=== PATIENT | female | born 1980 | race African-American/Black ===

== ENCOUNTER 2016-05-08 01:33 | Emergency (ER) | payer OTHER ==
--- NOTE | 2016-05-08 06:22 | DIAGNOSTIC IMAGING REPORT ---
PROCEDURE: XR CHEST 1 VIEW INDICATION: CHEST PAIN TECHNIQUE: Portable AP view (0230 hours). COMPARISON: None. FINDINGS: Lungs are clear. Heart and mediastinum are normal. Thorax is normal. IMPRESSION: 1. Negative chest.
--- NOTE | 2016-05-08 06:33 | DIAGNOSTIC IMAGING REPORT ---
PROCEDURE: CT ABD/PELVIS WITH CONTRAST INDICATION: Epigastric pain. TECHNIQUE: 125 ml of Isovue 300 were injected intravenously and axial images were obtained of the entire abdomen and pelvis with sagittal and coronal reformations. Preliminary report provided by Senia Estes MD ([facility]). COMPARISON: None. FINDINGS: ABDOMEN: Therefore large calcified gallstones (largest 1.8 cm) in a contracted gallbladder. There is moderate fluid distention of the stomach. Bowel pattern is otherwise normal. Liver, spleen, pancreas, kidneys, and aorta are normal. PELVIS: There is a 2.8 cm partially collapsed left ovarian cyst associated small amount of free fluid.. Uterus and right adnexal structures are normal. IMPRESSION: 1. Multiple large gallstones in the partially contracted gallbladder (suggests acute versus chronic cholecystitis). 2. Moderate fluid distention of the stomach. 3. There is a 2.8 cm partially collapsed left ovarian cyst with small amount of free fluid (may represent an incidental finding). All CT scans at this facility use dose modulation, iterative reconstruction, and/or weight-based dosing when appropriate to reduce radiation dose to as low as reasonably achievable.
--- NOTE | 2016-05-08 07:45 | DIAGNOSTIC IMAGING REPORT ---
PROCEDURE: US ABDOMEN ULTRASOUND-LIMITED INDICATION: Right abdominal pain. TECHNIQUE: Haddad scale and color Doppler sonographic images of the abdomen were obtained. COMPARISON: Compared to CT abdomen and pelvis earlier today (05/08/2016). FINDINGS: There are multiple large shadowing gallstones. There is moderate gallbladder wall thickening (4 mm). Common duct is normal (3 mm). Portions of the liver, pancreas, and right kidney are seen, and are normal. IMPRESSION: 1. Cholelithiasis with multiple large shadowing gallstones. 2. Moderate gallbladder wall thickening. Consider cholecystitis (acute versus chronic). 3. Findings discussed with Dr. Aquilino Lopez.
--- NOTE | 2016-05-08 08:04 | ED ORDER SUMMARY ---
..... Patient: MARK MORALES OrderSheet [facility] VisitID: [id number] [place] [address] 36y, F Registration Date/Time: 05/08/2016 ORDER SHEET Weight: 95.2 kg (stated) Allergies: No Known Drug Allergy GENERAL ORDERS: CMP Urgent (02:14 05/08/2016 JRomanelli R.N. verbal order read back to Alice Wilkerson) (2:15 JRomanelli R.N.) CBC w Diff Urgent (02:14 05/08/2016 JRomanelli R.N. verbal order read back to Alice Wilkerson) (2:15 JRomanelli R.N.) NPO (02:14 05/08/2016 JRomanelli R.N. verbal order read back to Alice Wilkerson) (Ack 2:18 IJurca ER Tech1) (2:20 JRomanelli R.N.) UA-Culture if indicated Urgent (02:15 05/08/2016 JRomanelli R.N. verbal order read back to Alice Wilkerson) (Ack 2:18 IJurca ER Tech1) (2:31 JRomanelli R.N.) Urine Urgent (02:16 05/08/2016 JRomanelli R.N. verbal order read back to Alice Wilkerson) (Ack 2:18 IJurca ER Tech1) (2:31 JRomanelli R.N.) Chest 1V Urgent (02:28 05/08/2016 Alice Wilkerson) (Ack 2:30 IJurca ER Tech1) (2:35 RFay) Amylase Urgent (02:29 05/08/2016 DMravindra Wilkerson) (Ack 2:30 IJurca ER Tech1) (2:31 JRomanelli R.N.) Lipase Urgent (02:29 05/08/2016 DMravindra Wilkerson) (Ack 2:30 IJurca ER Tech1) (2:31 JRomanelli R.N.) CT Abd/Pel w Cont (Yes) (01/19) Urgent (03:53 05/08/2016 Alice Wilkerson) (Ack 4:04 IJurca ER Tech1) (4:08 RFay) US Abdomen Limited (Yes) Urgent (05:04 05/08/2016 Alice Wilkerson) (Ack 5:07 IJurca ER Tech1) (6:42 IJurca ER Tech1) MEDICATION ORDERS: GI Cocktail RED PO 35 mL with Lidocaine Viscous Mouth/Throat 10 mL, Diphenhydramine Oral 10 mL, Maalox Plus Oral 15 mL (NOW) (02:29 05/08/2016 Alice Wilkerson) (2:44 Thao R.N.) IV FLUIDS: IV Saline Lock (02:14 05/08/2016 Thao R.NDonn verbal order read back to Alice Wilkerson) (2:15 Thao R.N.) IV NS : initial bolus none -, then none - for X1 (NOW) (02:28 05/08/2016 Alice Wilkerson) (2:32 Thao R.N.) ORDER SHEET NOTES: [Electronically signed by Aquilino Lopez Dr. (08:14 05/08/2016)] [Electronically signed by Esmer Batista R.N. (08:32 05/08/2016)] [Electronically locked/signed by Esmer Batista R.N. (08:32 05/08/2016)]
--- NOTE | 2016-05-08 08:04 | ED ORDER SUMMARY ---
..... Patient: MARK MORALES OrderSheet [facility] VisitID: [id number] [place] [address] 36y, F Registration Date/Time: 05/08/2016 ORDER SHEET Weight: 95.2 kg (stated) Allergies: No Known Drug Allergy GENERAL ORDERS: CMP Urgent (02:14 05/08/2016 JRomanelli R.N. verbal order read back to Alice Wilkerson) (2:15 JRomanelli R.N.) CBC w Diff Urgent (02:14 05/08/2016 JRomanelli R.N. verbal order read back to Alice Wilkerson) (2:15 JRomanelli R.N.) NPO (02:14 05/08/2016 JRomanelli R.N. verbal order read back to Alice Wilkerson) (Ack 2:18 IJurca ER Tech1) (2:20 JRomanelli R.N.) UA-Culture if indicated Urgent (02:15 05/08/2016 JRomanelli R.N. verbal order read back to Alice Wilkerson) (Ack 2:18 IJurca ER Tech1) (2:31 JRomanelli R.N.) Urine Urgent (02:16 05/08/2016 JRomanelli R.N. verbal order read back to Alice Wilkerson) (Ack 2:18 IJurca ER Tech1) (2:31 JRomanelli R.N.) Chest 1V Urgent (02:28 05/08/2016 Alice Wilkerson) (Ack 2:30 IJurca ER Tech1) (2:35 RFay) Amylase Urgent (02:29 05/08/2016 DMravindra Wilkerson) (Ack 2:30 IJurca ER Tech1) (2:31 JRomanelli R.N.) Lipase Urgent (02:29 05/08/2016 DMravindra Wilkerson) (Ack 2:30 IJurca ER Tech1) (2:31 JRomanelli R.N.) CT Abd/Pel w Cont (Yes) (01/19) Urgent (03:53 05/08/2016 Alice Wilkerson) (Ack 4:04 IJurca ER Tech1) (4:08 RFay) US Abdomen Limited (Yes) Urgent (05:04 05/08/2016 Alice Wilkerson) (Ack 5:07 IJurca ER Tech1) (6:42 IJurca ER Tech1) MEDICATION ORDERS: GI Cocktail RED PO 35 mL with Lidocaine Viscous Mouth/Throat 10 mL, Diphenhydramine Oral 10 mL, Maalox Plus Oral 15 mL (NOW) (02:29 05/08/2016 Alice Wilkerson) (2:44 Thao R.N.) IV FLUIDS: IV Saline Lock (02:14 05/08/2016 Thao R.NDonn verbal order read back to Alice Wilkerson) (2:15 Thao R.N.) IV NS : initial bolus none -, then none - for X1 (NOW) (02:28 05/08/2016 Alice Wilkerson) (2:32 Thao R.N.) ORDER SHEET NOTES: [Electronically signed by Aquilino Lopez Dr. (08:14 05/08/2016)] [Electronically signed by Esmer Batista R.N. (08:32 05/08/2016)] [Electronically locked/signed by Esmer Batista R.N. (08:32 05/08/2016)]
--- NOTE | 2016-05-08 08:04 | ED NURSING NOTES ---
Clinical Report - Nurses [facility] [address] [place] [address] 05/08/2016 1:41 [id number] Triage time 01:40 May 08 2016. Acuity: LEVEL 3. Chief Complaint: ABDOMINAL PAIN, NAUSEA and VOMITING. Alert. FAHAD COMA SCORE: Fahad Coma Scale: 15- eyes open spontaneously (4); best verbal response- oriented x 4 (5); best motor response- obeys commands (6). --01:55 Henri Mayfield R.N. 01:43 05/08/16. BP: 127/72. HR: 85. RR: 20. O2 saturation: 100% on room air. Temp: 97.8 F. Pain level now: 11/28. --01:55 Henri Mayfield R.N. Weight: 95.2 kg stated. Height/Length: 62 inches. BMI: 38.4. --01:54 Henri Mayfield R.N. Medications MetFORMIN HCl Oral 500 mg, 2x a day. --01:51 Henri Mayfield R.N. Medication/allergy information source: the patient. --01:55 Henri Mayfield R.N. Allergies No Known Drug Allergy. --01:51 Henri Mayfield R.N. History Arrived by EMS. Historian: patient. Unaccompanied. Primary physician (justice). ( Abdominal Pain LUQ associated with N/V. Pt states that she felt as though her blood sugar was too low (DM) and she didn't have her usual OJ handy, so she made herself a peanut butter and jelly sandwich and 5 minutes after eating it, she became SOB and developed Abdominal Pain.). This started just prior to arrival. She has had nausea, vomiting and abdominal pain. Last oral intake by patient was (about 4 hours ago). Treatment IMAGING MANAGER: None. PAST MEDICAL HX: Immunizations: status is unknown. SOCIAL HX: Former smoker, end date 2013. No alcohol use or drug use. No recent travel. No infectious disease exposure. ABUSE ASSESSMENT: No report of abuse. FALL RISK ASSESSMENT: Fall risk assessment completed. No fall risk identified. NUTRITIONAL RISK ASSESSMENT: The nutritional risk assessment revealed no deficiencies. FUNCTIONAL ASSESSMENT: Functional assessment: no impairments noted. LEARNING NEEDS ASSESSMENT: The learning needs assessment revealed no barriers. SKIN INTEGRITY ASSESSMENT: Skin integrity risk assessment completed. No skin integrity risk identified. --01:55 Henri Mayfield R.N. PROBLEMS: Spontaneous (Miscarriage). Fibula Fracture. Sprain. Ectopic . Fractured Phalanx (Toe). Immunizations. Diabetes Mellitus. --01:52 Henri Mayfield R.N. ADDITIONAL SURGERIES: Salpingectomy. Surgery to remove ectopic . --01:52 Henri Mayfield R.N. Interventions ID band on patient. To room. --:55 Henri Mayfield R.N. PHYSICAL ASSESSMENT Ambulatory to room. GENERAL / NEURO / PSYCH: Alert. Oriented X 4. HEENT: Mucous membranes are pink. RESPIRATORY: Respirations not labored. CVS: Normal sinus rhythm noted. GI / : Abdomen soft. Abdominal tenderness in the left upper quadrant. Bowel sounds within normal limits. SKIN: Skin is warm and dry. --01:55 Henri Mayfield R.N. NURSING PROGRESS NOTES Patient gowned. Reassurance given. Patient identifiers checked. Call light placed in reach. Side rails up x 1. Bed placed in lowest position. Brakes of bed on. Patient ready for evaluation- chart flagged and ED physician notified. --01:55 Henri Mayfield R.N. 02:00 05/08/2016 Site #1 started via IV in the left antecubital space with an 20g angiocath, with aseptic technique and good blood return; one attempt. Blood drawn: rainbow set. Labeled in the presence of the patient and sent to the lab. Saline lock flushed with 10 mL saline. --02:15 Henri Mayfield R.N. 02:32 05/08/2016 Started bag #1 1000 mL IV Fluids IV NS (Saline); at 1000 mL/hr over 60 minute(s) via site #1 via IV pump. Allergies verified and confirmed 5 rights. IV patency established. IV site checked: no pain, redness, or swelling. IV flushed thoroughly pre- and post-medication administration. --02:32 Henri Mayfield R.N. 02:39 05/08/2016 GI COCKTAIL RED (Magnesium-Aluminum) PO Oral Suspension 35 mL given. Allergies verified and confirmed 5 rights. --02:44 Henri Mayfield R.N. 03:55 05/08/16. Patient transported to CT by stretcher with tech. --03:55 Henri Mayfield R.N. Patient returned from CT by stretcher with tech. --04:12 Henri Mayfield R.N. 03:35 05/08/2016 IV Fluids IV NS Discontinued: bag #1 infused. Total amount infused: 1000 mL. IV patency established. IV site checked: no pain, redness, or swelling. IV flushed thoroughly. --04:19 Henri Mayfield R.N. 04:00 05/08/16. BP: 111/57. HR: 95. RR: 18. O2 saturation: 100% on room air. --04:25 Henri Mayfield R.N. 05:38 05/08/16. BP: 104/62. HR: 87. RR: 16. O2 saturation: 100% on room air. --05:39 Henri Mayfield R.N. 06:25 05/08/16. ( technician semiconductor development in room.). --06:25 Henri Mayfield R.N. 06:45 05/08/16. BP: 112/62. HR: 72. RR: 16. O2 saturation: 100% on room air. Pain level now: 03/31. --06:54 Henri Mayfield R.N. 07:14 05/08/16. Care transferred and report received (from Henri RN). --07:14 Esmer Batista R.N. 07:13 05/08/16. BP: 125/85. HR: 83. RR: 14. O2 saturation: 100%. Pain level now: 04/28. --07:14 Esmer Batista R.N. 07:59 05/08/16. Patient informed about reason for wait and about plan of care. ( pt resting quietly in bed.). --07:59 Esmer Batista R.N. DISPOSITION / DISCHARGE 07:15 05/08/16. Patient's personal items include: coat and wallet; items were placed in belongings bag and given to the patient. --07:15 Esmer Batista R.N. 08:16 05/08/2016 Site #1 removed upon discharge. Manual pressure and bandage applied. --08:21 Esmer Batista R.N. 08:27 05/08/16. No learning barriers present. Discharge instructions provided and reviewed with the patient. Reviewed warnings. Reviewed medication(s). Treatments reviewed. Reviewed referrals. Reviewed diet. Patient verbalized understanding. Written instructions provided in Urdu. The patient was discharged by the physician. She was discharged home. She left the Emergency Department ambulatory and via private vehicle. Independent Sales Representative driving. --08:27 Esmer Batista R.N. 08:20 05/08/16. BP: 120/74. HR: 85. RR: 16. O2 saturation: 99%. Temp: deferred. Pain level now: 5/10. --08:27 Esmer Batista R.N. Departure time: 08:29. --08:29 Esmer Batista R.N. Locked/Released at 05/08/2016 8:32 by Esmer Batista R.N.
--- NOTE | 2016-05-08 08:04 | ED CLINICAL REPORT ---
Clinical Report - Physicians/Mid Levels [facility] [address] [place] [address] 05/08/2016 1:41 Patient: MARK MORALES Time Seen: 01:55; initial patient contact. Arrived- By private vehicle. Historian- patient. HISTORY OF PRESENT ILLNESS Chief Complaint: ABDOMINAL PAIN. At its maximum, severity described as moderate. When seen in the E.D., severity described as moderate. Modifying factors- worsened by food. Not relieved by anything. This started just prior to arrival and is still present (persistent). It was abrupt in onset. It is described as sharp. No radiation. It is described as located in the epigastric area and in the upper abdomen. No nausea or loss of appetite. Similar symptoms previously: None. Recent medical care: Not recently seen/assessed. REVIEW OF SYSTEMS No constipation, pain with urination, urinary frequency, fever or chest pain. No cough or chills. She has had difficulty breathing. All systems otherwise negative, except as recorded above. PAST HISTORY Spontaneous (Miscarriage). Fibula Fracture. Sprain. Ectopic . Fractured Phalanx (Toe). Immunizations. Diabetes Mellitus. SURGERIES: Salpingectomy. Surgery to remove ectopic . SOCIAL HISTORY Former smoker. No alcohol use or drug use. ADDITIONAL NOTES The nursing notes have been reviewed with agreement regarding the chief complaint, PMH and patient medications and allergies. PHYSICAL EXAM Vital Signs: 05/08/2016 01:43 BP: 127/72. HR: 85. RR: 20. O2 saturation: 100%. Temp: 97.8 F. Pain level now: 10/10. Have been reviewed as normal. Appearance: Alert. Oriented X3. No acute distress. Eyes: Eyes normal inspection. ENT: Dry mucous membranes present. CVS: Normal heart rate and rhythm. Heart sounds normal. Respiratory: No respiratory distress. Breath sounds normal. Abdomen: Soft. Moderate tenderness in the epigastric area with guarding present. No rebound tenderness or Thorne's sign present. Bowel sounds normal. No organomegaly. No mass. Back: Normal inspection. No CVA tenderness. Skin: Normal skin color. No rash. Extremities: No lower extremity edema. Neuro: Oriented X 3. LABS, X-RAYS, AND EKG Chest X-ray: No acute disease. Normal lung markings present. Normal heart size. No infiltrate. Views: AP. The X-rays were independently viewed by me and interpreted contemporaneously by me. Prior films were not available for comparison. Abdominal CT: Cholelithiasis. No GB distension or obvious soft tissue stranding. Recommend U/S to evaluate for acute cholecystitis. Study type: abdomen and pelvis. Abdominal CT performed with IV contrast. The study was independently viewed by me, interpreted by the radiologist and discussed with the radiologist. Prior studies were not available for comparison. Interpretation time: 05:05. Laboratory Tests: UA-Culture if indicated: (PANCHO: 05/08/2016 02:20) ( [facility] 05/08/2016 02:40) Final results Test Result Flag Units (Reference) URINE COLOR YELLOW URINE APPEARANCE CLEAR URINE GLUCOSE NEGATIVE (NEGATIVE) URINE BILIRUBIN NEGATIVE (NEGATIVE) URINE KETONE NEGATIVE (NEGATIVE) URINE SPECIFIC GRAVITY 1.025 (1.010-1.030) URINE PH 6.0 (5.0-8.0) URINE PROTEIN NEGATIVE (NEGATIVE) URINE UROBILINOGEN 0.2 EU/dL (0.2-1.0) URINE NITRITE NEGATIVE (NEGATIVE) URINE BLOOD TRACE-INTACT (NEGATIVE) URINE LEUK ESTERASE NEGATIVE (NEGATIVE) URINE RBC 0-1 rbc/hpf (0-1) URINE WBC 0-1 wbc/hpf (0-1) URINE EPITHELIAL CELLS 0-1 EPI/hpf (0-5) URINE BACTERIA NONE SEEN (NONE SEEN) URINE COMMENT CULT NOT INDICATED URINE CULTURES ARE SET-UP BASED ON THE FOLLOWING CRITERIA:POSITIVE NITRITEPOSITIVE LEUKOCYTE ESTERASEGREATER THAN 10 WHITE BLOOD CELLSMODERATE (2+) OR GREATER BACTERIA Urine: (PANCHO: 05/08/2016 02:20) ( [facility] 05/08/2016 02:36) Final results Test Result Flag Units (Reference) URINE NEGATIVE CBC w Diff: (PANCHO: 05/08/2016 02:00) ( [facility] 05/08/2016 02:20) Final results Test Result Flag Units (Reference) WHITE BLOOD COUNT 16.1 H K/uL (4.5-11.5) RED BLOOD COUNT 4.58 M/uL (4.00-5.20) HEMOGLOBIN 14.2 gm/dL (12.0-16.0) HEMATOCRIT 43.0 % (36.0-46.0) MEAN CELL VOLUME 94 fL (80-100) MEAN CORPUSCULAR HGB 31 pg (26-34) MEAN CORPUSCULAR HGB CONC 33 g/dL (31-37) RED CELL DISTRIBUTION WIDTH 13.7 % (11.6-14.8) PLATELET COUNT 390 K/uL (150-400) NEUTROPHIL % 84.1 H % (50-75) LYMPH % 10.4 L % (25-40) MONO % 3.4 % (3-14) EOSINOPHIL % 1.7 % (0-4) BASOPHIL % 0.4 % (0-2) Lipase: (PANCHO: 05/08/2016 02:20) ( [facility] 05/08/2016 02:37) Final results Test Result Flag Units (Reference) LIPASE 151 U/L (73-393) AMYLASE 86 U/L (25-115) CMP: (PANCHO: 05/08/2016 02:00) ( [facility] 05/08/2016 02:37) Final results Test Result Flag Units (Reference) GLUCOSE 105 mg/dL (70-110) BUN 12 mg/dL (7-18) CREATININE 1.0 mg/dL (0.6-1.3) Estimated GFR >60 mL/min Estimated GFR- >60 mL/min Note: Persistent reduction over 3 months in eGFR<60 mL/min/1.73 m2 defines CKD. Patients with eGFR values>=60 mL/min/1.73 m2 may also have CKD if evidence ofpersistent proteinuria. Additional information may be foundat www.kidney.org. SODIUM 139 mmol/L (136-145) POTASSIUM 3.6 mmol/L (3.5-5.1) CHLORIDE 103 mmol/L (98-107) CARBON DIOXIDE 24 mmol/L (21-32) CALCIUM 10.0 mg/dL (8.5-10.1) TOTAL PROTEIN 8.4 H g/dL (6.4-8.2) ALBUMIN 3.9 g/dL (3.3-5.0) BILIRUBIN, TOTAL 0.3 mg/dL (0.0-1.0) ALKALINE PHOSPHATASE 100 U/L (46-116) AST (SGOT) 113 H U/L (15-37) ALT (SGPT) 104 H U/L (12-78) . PROGRESS AND PROCEDURES Course of Care: 07:30 05/08/16. Re-examined pt, currently no RUQ pain, neg Thorne's sign. Very mild epigastric pain. Discussed case with on-call health care provider, (call returned 07:23 Dr. Castro Gen Surg @ [facility], since her pain went away with GI cocktail and no Thorne's sign on exam or U/S, she can be D/C'd from ED and have an outpt jennie.). Discussed case with on-call health care provider, (call returned 08:03 Dr. Johnson agreed w/ Dr. Castro's plan, will see pt in ofc.). Health care provider will see patient in office. Disposition: Discharged home in good and improved condition. Condition: good. CLINICAL IMPRESSION Biliary colic with multiple gallstones. INSTRUCTIONS Drink plenty of fluids. Avoid fatty and fried/greasy foods. Your Current Medications: CHANGE THE FOLLOWING MEDICATIONS TO: MetFORMIN HCl Oral : 500 mg 2x a day, Hold for [address] contrast. Prescription Medications: Hydrocodone/APAP 5mg / 325mg: take 1 orally every 6 hours as needed for pain. Dispense twenty (20). No refill. Zofran (orally disintegrating tablets) 4 mg: take 1 orally every 6 hours as needed for nausea and vomiting. Dispense ten (10). No refill. Substitution is permissible. Follow-up with: Slade Knight MD, General Surgeon, , [facility], [address] [place] [address], [facility] Follow up tomorrow. Call for an appointment. (Electronically signed by Aquilino Lopez Dr. 05/08/2016 8:14)
--- NOTE | 2016-05-08 08:04 | ED NURSING NOTES ---
Clinical Report - Nurses [facility] [address] [place] [address] 05/08/2016 1:41 [id number] Triage time 01:40 May 08 2016. Acuity: LEVEL 3. Chief Complaint: ABDOMINAL PAIN, NAUSEA and VOMITING. Alert. FAHAD COMA SCORE: Fahad Coma Scale: 15- eyes open spontaneously (4); best verbal response- oriented x 4 (5); best motor response- obeys commands (6). --01:55 Henri Mayfield R.N. 01:43 05/08/16. BP: 127/72. HR: 85. RR: 20. O2 saturation: 100% on room air. Temp: 97.8 F. Pain level now: 11/28. --01:55 Henri Mayfield R.N. Weight: 95.2 kg stated. Height/Length: 62 inches. BMI: 38.4. --01:54 Henri Mayfield R.N. Medications MetFORMIN HCl Oral 500 mg, 2x a day. --01:51 Henri Mayfield R.N. Medication/allergy information source: the patient. --01:55 Henri Mayfield R.N. Allergies No Known Drug Allergy. --01:51 Henri Mayfield R.N. History Arrived by EMS. Historian: patient. Unaccompanied. Primary physician (justice). ( Abdominal Pain LUQ associated with N/V. Pt states that she felt as though her blood sugar was too low (DM) and she didn't have her usual OJ handy, so she made herself a peanut butter and jelly sandwich and 5 minutes after eating it, she became SOB and developed Abdominal Pain.). This started just prior to arrival. She has had nausea, vomiting and abdominal pain. Last oral intake by patient was (about 4 hours ago). 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 PAST MEDICAL HX: Immunizations: status is unknown. SOCIAL HX: Former smoker, end date 2013. No alcohol use or drug use. No recent travel. No infectious disease exposure. ABUSE ASSESSMENT: No report of abuse. FALL RISK ASSESSMENT: Fall risk assessment completed. No fall risk identified. NUTRITIONAL RISK ASSESSMENT: The nutritional risk assessment revealed no deficiencies. FUNCTIONAL ASSESSMENT: Functional assessment: no impairments noted. LEARNING NEEDS ASSESSMENT: The learning needs assessment revealed no barriers. SKIN INTEGRITY ASSESSMENT: Skin integrity risk assessment completed. No skin integrity risk identified. --01:55 Henri Mayfield R.N. PROBLEMS: Spontaneous (Miscarriage). Fibula Fracture. Sprain. Ectopic . Fractured Phalanx (Toe). Immunizations. Diabetes Mellitus. --01:52 Henri Mayfield R.N. ADDITIONAL SURGERIES: Salpingectomy. Surgery to remove ectopic . --01:52 Henri Mayfield R.N. Interventions ID band on patient. To room. --:55 Henri Mayfield R.N. PHYSICAL ASSESSMENT Ambulatory to room. GENERAL / NEURO / PSYCH: Alert. Oriented X 4. HEENT: Mucous membranes are pink. RESPIRATORY: Respirations not labored. CVS: Normal sinus rhythm noted. GI / : Abdomen soft. Abdominal tenderness in the left upper quadrant. Bowel sounds within normal limits. SKIN: Skin is warm and dry. --01:55 Henri Mayfield R.N. NURSING PROGRESS NOTES Patient gowned. Reassurance given. Patient identifiers checked. Call light placed in reach. Side rails up x 1. Bed placed in lowest position. Brakes of bed on. Patient ready for evaluation- chart flagged and ED physician notified. --01:55 Henri Mayfield R.N. 02:00 05/08/2016 Site #1 started via IV in the left antecubital space with an 20g angiocath, with aseptic technique and good blood return; one attempt. Blood drawn: rainbow set. Labeled in the presence of the patient and sent to the lab. Saline lock flushed with 10 mL saline. --02:15 Henri Mayfield R.N. 02:32 05/08/2016 Started bag #1 1000 mL IV Fluids IV NS (Saline); at 1000 mL/hr over 60 minute(s) via site #1 via IV pump. Allergies verified and confirmed 5 rights. IV patency established. IV site checked: no pain, redness, or swelling. IV flushed thoroughly pre- and post-medication administration. --02:32 Henri Mayfield R.N. 02:39 05/08/2016 GI COCKTAIL RED (Magnesium-Aluminum) PO Oral Suspension 35 mL given. Allergies verified and confirmed 5 rights. --02:44 Henri Mayfield R.N. 03:55 05/08/16. Patient transported to CT by stretcher with tech. --03:55 Henri Mayfield R.N. Patient returned from CT by stretcher with tech. --04:12 Henri Mayfield R.N. 03:35 05/08/2016 IV Fluids IV NS Discontinued: bag #1 infused. Total amount infused: 1000 mL. IV patency established. IV site checked: no pain, redness, or swelling. IV flushed thoroughly. --04:19 Henri Mayfield R.N. 04:00 05/08/16. BP: 111/57. HR: 95. RR: 18. O2 saturation: 100% on room air. --04:25 Henri Mayfield R.N. 05:38 05/08/16. BP: 104/62. HR: 87. RR: 16. O2 saturation: 100% on room air. --05:39 Henri Mayfield R.N. 06:25 05/08/16. 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 --06:25 Henri Mayfield R.N. 06:45 05/08/16. BP: 112/62. HR: 72. RR: 16. O2 saturation: 100% on room air. Pain level now: 03/31. --06:54 Henri Mayfield R.N. 07:14 05/08/16. Care transferred and report received (from Henri RN). --07:14 Esmer Batista R.N. 07:13 05/08/16. BP: 125/85. HR: 83. RR: 14. O2 saturation: 100%. Pain level now: 04/28. --07:14 Esmer Batista R.N. 07:59 05/08/16. Patient informed about reason for wait and about plan of care. ( pt resting quietly in bed.). --07:59 Esmer Batista R.N. DISPOSITION / DISCHARGE 07:15 05/08/16. Patient's personal items include: coat and wallet; items were placed in belongings bag and given to the patient. --07:15 Esmer Batista R.N. 08:16 05/08/2016 Site #1 removed upon discharge. Manual pressure and bandage applied. --08:21 Esmer Batista R.N. 08:27 05/08/16. No learning barriers present. Discharge instructions provided and reviewed with the patient. Reviewed warnings. Reviewed medication(s). Treatments reviewed. Reviewed referrals. Reviewed diet. Patient verbalized understanding. Written instructions provided in Upper Sorbian. The patient was discharged by the physician. She was discharged home. She left the Emergency Department ambulatory and via private vehicle. [employer] driving. --08:27 Esmer Batista R.N. 08:20 05/08/16. BP: 120/74. HR: 85. RR: 16. O2 saturation: 99%. Temp: deferred. Pain level now: 5/10. --08:27 Esmer Batista R.N. Departure time: 08:29. --08:29 Esmer Batista R.N. Locked/Released at 05/08/2016 8:32 by Esmer Batista R.N.
--- NOTE | 2016-05-08 08:04 | ED CLINICAL REPORT ---
Clinical Report - Physicians/Mid Levels [facility] [address] [place] [address] 05/08/2016 1:41 Patient: MARK MORALES Time Seen: 01:55; initial patient contact. Arrived- By private vehicle. Historian- patient. HISTORY OF PRESENT ILLNESS Chief Complaint: ABDOMINAL PAIN. At its maximum, severity described as moderate. When seen in the E.D., severity described as moderate. Modifying factors- worsened by food. Not relieved by anything. This started just prior to arrival and is still present (persistent). It was abrupt in onset. It is described as sharp. No radiation. It is described as located in the epigastric area and in the upper abdomen. No nausea or loss of appetite. Similar symptoms previously: None. Recent medical care: Not recently seen/assessed. REVIEW OF SYSTEMS No constipation, pain with urination, urinary frequency, fever or chest pain. No cough or chills. She has had difficulty breathing. All systems otherwise negative, except as recorded above. PAST HISTORY Spontaneous (Miscarriage). Fibula Fracture. Sprain. Ectopic . Fractured Phalanx (Toe). Immunizations. Diabetes Mellitus. SURGERIES: Salpingectomy. Surgery to remove ectopic . SOCIAL HISTORY Former smoker. No alcohol use or drug use. ADDITIONAL NOTES The nursing notes have been reviewed with agreement regarding the chief complaint, PMH and patient medications and allergies. PHYSICAL EXAM Vital Signs: 05/08/2016 01:43 BP: 127/72. HR: 85. RR: 20. O2 saturation: 100%. Temp: 97.8 F. Pain level now: 10/10. Have been reviewed as normal. Appearance: Alert. Oriented X3. No acute distress. Eyes: Eyes normal inspection. ENT: Dry mucous membranes present. CVS: Normal heart rate and rhythm. Heart sounds normal. Respiratory: No respiratory distress. Breath sounds normal. Abdomen: Soft. Moderate tenderness in the epigastric area with guarding present. No rebound tenderness or Thorne's sign present. Bowel sounds normal. No organomegaly. No mass. Back: Normal inspection. No CVA tenderness. Skin: Normal skin color. No rash. Extremities: No lower extremity edema. Neuro: Oriented X 3. LABS, X-RAYS, AND EKG Chest X-ray: No acute disease. Normal lung markings present. Normal heart size. No infiltrate. Views: AP. The X-rays were independently viewed by me and interpreted contemporaneously by me. Prior films were not available for comparison. Abdominal CT: Cholelithiasis. No GB distension or obvious soft tissue stranding. Recommend U/S to evaluate for acute cholecystitis. Study type: abdomen and pelvis. Abdominal CT performed with IV contrast. The study was independently viewed by me, interpreted by the radiologist and discussed with the radiologist. Prior studies were not available for comparison. Interpretation time: 05:05. Laboratory Tests: UA-Culture if indicated: (PANCHO: 05/08/2016 02:20) ( [facility] 05/08/2016 02:40) Final results Test Result Flag Units (Reference) URINE COLOR YELLOW URINE APPEARANCE CLEAR URINE GLUCOSE NEGATIVE (NEGATIVE) URINE BILIRUBIN NEGATIVE (NEGATIVE) URINE KETONE NEGATIVE (NEGATIVE) URINE SPECIFIC GRAVITY 1.025 (1.010-1.030) URINE PH 6.0 (5.0-8.0) URINE PROTEIN NEGATIVE (NEGATIVE) URINE UROBILINOGEN 0.2 EU/dL (0.2-1.0) URINE NITRITE NEGATIVE (NEGATIVE) URINE BLOOD TRACE-INTACT (NEGATIVE) URINE LEUK ESTERASE NEGATIVE (NEGATIVE) URINE RBC 0-1 rbc/hpf (0-1) URINE WBC 0-1 wbc/hpf (0-1) URINE EPITHELIAL CELLS 0-1 EPI/hpf (0-5) URINE BACTERIA NONE SEEN (NONE SEEN) URINE COMMENT CULT NOT INDICATED URINE CULTURES ARE SET-UP BASED ON THE FOLLOWING CRITERIA:POSITIVE NITRITEPOSITIVE LEUKOCYTE ESTERASEGREATER THAN 10 WHITE BLOOD CELLSMODERATE (2+) OR GREATER BACTERIA Urine: (PANCHO: 05/08/2016 02:20) ( [facility] 05/08/2016 02:36) Final results Test Result Flag Units (Reference) URINE NEGATIVE CBC w Diff: (PANCHO: 05/08/2016 02:00) ( [facility] 05/08/2016 02:20) Final results Test Result Flag Units (Reference) WHITE BLOOD COUNT 16.1 H K/uL (4.5-11.5) RED BLOOD COUNT 4.58 M/uL (4.00-5.20) HEMOGLOBIN 14.2 gm/dL (12.0-16.0) HEMATOCRIT 43.0 % (36.0-46.0) MEAN CELL VOLUME 94 fL (80-100) MEAN CORPUSCULAR HGB 31 pg (26-34) MEAN CORPUSCULAR HGB CONC 33 g/dL (31-37) RED CELL DISTRIBUTION WIDTH 13.7 % (11.6-14.8) PLATELET COUNT 390 K/uL (150-400) NEUTROPHIL % 84.1 H % (50-75) LYMPH % 10.4 L % (25-40) MONO % 3.4 % (3-14) EOSINOPHIL % 1.7 % (0-4) BASOPHIL % 0.4 % (0-2) Lipase: (PANCHO: 05/08/2016 02:20) ( [facility] 05/08/2016 02:37) Final results Test Result Flag Units (Reference) LIPASE 151 U/L (73-393) AMYLASE 86 U/L (25-115) CMP: (PANCHO: 05/08/2016 02:00) ( [facility] 05/08/2016 02:37) Final results Test Result Flag Units (Reference) GLUCOSE 105 mg/dL (70-110) BUN 12 mg/dL (7-18) CREATININE 1.0 mg/dL (0.6-1.3) Estimated GFR >60 mL/min Estimated GFR- >60 mL/min Note: Persistent reduction over 3 months in eGFR<60 mL/min/1.73 m2 defines CKD. Patients with eGFR values>=60 mL/min/1.73 m2 may also have CKD if evidence ofpersistent proteinuria. Additional information may be foundat www.kidney.org. SODIUM 139 mmol/L (136-145) POTASSIUM 3.6 mmol/L (3.5-5.1) CHLORIDE 103 mmol/L (98-107) CARBON DIOXIDE 24 mmol/L (21-32) CALCIUM 10.0 mg/dL (8.5-10.1) TOTAL PROTEIN 8.4 H g/dL (6.4-8.2) ALBUMIN 3.9 g/dL (3.3-5.0) BILIRUBIN, TOTAL 0.3 mg/dL (0.0-1.0) ALKALINE PHOSPHATASE 100 U/L (46-116) AST (SGOT) 113 H U/L (15-37) ALT (SGPT) 104 H U/L (12-78) . PROGRESS AND PROCEDURES Course of Care: 07:30 05/08/16. Re-examined pt, currently no RUQ pain, neg Thorne's sign. Very mild epigastric pain. Discussed case with on-call health care provider, (call returned 07:23 Dr. Castro Gen Surg @ [facility], since her pain went away with GI cocktail and no Thorne's sign on exam or U/S, she can be D/C'd from ED and have an outpt jennie.). Discussed case with on-call health care provider, (call returned 08:03 Dr. Johnson agreed w/ Dr. Castro's plan, will see pt in ofc.). Health care provider will see patient in office. Disposition: Discharged home in good and improved condition. Condition: good. CLINICAL IMPRESSION Biliary colic with multiple gallstones. INSTRUCTIONS Drink plenty of fluids. Avoid fatty and fried/greasy foods. Your Current Medications: CHANGE THE FOLLOWING MEDICATIONS TO: MetFORMIN HCl Oral : 500 mg 2x a day, Hold for [address] contrast. Prescription Medications: Hydrocodone/APAP 5mg / 325mg: take 1 orally every 6 hours as needed for pain. Dispense twenty (20). No refill. Zofran (orally disintegrating tablets) 4 mg: take 1 orally every 6 hours as needed for nausea and vomiting. Dispense ten (10). No refill. Substitution is permissible. Follow-up with: Slade Knight MD, General Surgeon, , [facility], [address] [place] [address], [facility] Follow up tomorrow. Call for an appointment. (Electronically signed by Aquilino Lopez Dr. 05/08/2016 8:14)
--- NOTE | 2016-05-08 08:32 | ED DISCHARGE INSTRUCTIONS ---
Patient: MARK MORALES General Instructions [facility] VisitID: [id number] [address] [place] [address] 36y, F Registration Date/Time: 05/08/2016 Biliary colic with multiple gallstones. INSTRUCTIONS Drink plenty of fluids. Avoid fatty and fried/greasy foods. Your Current Medications: CHANGE THE FOLLOWING MEDICATIONS TO: MetFORMIN HCl Oral : 500 mg 2x a day, Hold for [address] contrast. Prescription Medications: Hydrocodone/APAP 5mg / 325mg: take 1 orally every 6 hours as needed for pain. Dispense twenty (20). No refill. Zofran (orally disintegrating tablets) 4 mg: take 1 orally every 6 hours as needed for nausea and vomiting. Dispense ten (10). No refill. Substitution is permissible. Follow-up with: Slade Knight MD, General Surgeon, , [facility], [address] [place] [address] Follow up tomorrow. Call for an appointment. ADDITIONAL INFORMATION GallstonesWith Biliary Colic [Confirmed Dx] The abdominal pain that you have today is due to spasm of the gallbladder. The gallbladder is a small sac under the liver which stores and releases bile. Bile is a fluid that aids in the digestion of fat. A gallstone may form inside the gallbladder and block the flow of bile fluid. This causes mild to severe crampy pain in the mid or right upper abdomen with nausea and vomiting. Home Care: Rest in bed and follow a clear liquid diet until feeling better. If pain or nausea medicine was given to help with your symptoms, take these as directed. Fat in your diet makes the gallbladder contract and may cause increased pain. Therefore, avoid fat in your diet over the next two days and follow a low-fat diet after that. If you are overweight, a low-fat diet will also help you lose weight. Follow Up with your doctor. There is a 50% chance that you will have another episode of pain from your gallstones during the next 2 years. Removal of the gallbladder is the treatment of choice to prevent this. Schedule an appointment with your own doctor during the next week to discuss the treatment options. Get Prompt Medical Attention if any of the following occur: Pain gets worse or moves to the right lower abdomen Repeated vomiting Swelling of the abdomen Pain lasts over 6 hours Fever of 100.4F (38C) or higher, or as directed by your healthcare provider Weakness, dizziness or fainting Dark urine or light colored stools Yellow color of the skin or eyes Chest, arm, back, neck or jaw pain Kaufman Diet A bland diet is used for patients with an upset stomach. It consists of foods that are mild and easy to digest. It is better to eat small frequent meals rather than three large meals a day. BEVERAGES OK: Fruit juices, non-caffeinated teas and coffee, non-carbonated farrar AVOID: Carbonated beverage, caffeinated tea and coffee, all alcoholic beverages BREAD OK: Refined white, wheat or rye bread, dinesh or soda crackers, Nola toast, plain rolls, bagels AVOID: Whole-grain bread CEREAL OK: Refined cereals: cooked or ready to eat AVOID: Whole grain cereals and granola, or those containing bran, seeds or nuts DESSERTS OK: Peanut butter and all others except those to "avoid" AVOID: Chocolate, cocoa, coconut, popcorn, nuts, seeds, jam, marmalade FRUITS OK: Canned, cooked, frozen or fresh fruits without seeds or tough skin AVOID: Olives, skin and seeds of fruit MEATS OK: All fresh or preserved meat, fish and fowl AVOID: Any that are prepared with those spices to "avoid" CHEESE & EGGS OK: Eggs, cottage cheese, cream cheese, other cheeses AVOID: All cheeses made with those spices to "avoid" POTATOES & PASTA OK: Potato, rice, macaroni, noodles, spaghetti AVOID: None SOUPS OK: All soups without heavy seasoning AVOID: Soups made with those spices to "avoid" VEGETABLES OK: Canned, cooked, fresh or frozen mildly flavored vegetables without seeds, skins or coarse fiber AVOID: Vegetables prepared with those spices to "avoid"; skin and seeds of vegetables and those with coarse fiber SPICES OK: Salt, lemon and nulato juice, vinegar, all extracts, ming, cinnamon, thyme, mace, allspice, paprika AVOID: [place] powder, cloves, pepper, seed spices, garlic, gravy pickles, highly seasoned salad dressings Hydrocodone Bitartrate, Acetaminophen Oral tablet What is this medicine? ACETAMINOPHEN; HYDROCODONE (a set a MARIANGEL regina fen; chace droe KOE done) is a pain reliever. It is used to treat mild to moderate pain. How should I use this medicine? Take this medicine by mouth. Swallow it with a full glass of water. Follow the directions on the prescription label. If the medicine upsets your stomach, take the medicine with food or milk. Do not take more than you are told to take. Talk to your materials clerk regarding the use of this medicine in children. This medicine is not approved for use in children. What side effects may I notice from receiving this medicine? Side effects that you should report to your doctor or health adult care provider as soon as possible: allergic reactions like skin rash, itching or hives, swelling of the face, lips, or tongue breathing problems confusion feeling faint or lightheaded, falls stomach pain yellowing of the eyes or skin Side effects that usually do not require medical attention (report to your doctor or health adult care provider if they continue or are bothersome): nausea, vomiting stomach upset What may interact with this medicine? alcohol antihistamines isoniazid medicines for depression, anxiety, or psychotic disturbances medicines for sleep muscle relaxants naltrexone narcotic medicines (opiates) for pain phenobarbital ritonavir tramadol What if I miss a dose? If you miss a dose, take it as soon as you can. If it is almost time for your next dose, take only that dose. Do not take double or extra doses. Where should I keep my medicine? Keep out of the reach of children. This medicine can be abused. Keep your medicine in a safe place to protect it from theft. Do not share this medicine with anyone. Selling or giving away this medicine is dangerous and against the law. Store at room temperature between 15 and 30 degrees C (59 and 86 degrees F). Protect from light. Keep container tightly closed. Throw away any unused medicine after the expiration date. Discard unused medicine and used packaging carefully. Pets and children can be harmed if they find used or lost packages. What should I tell my health care provider before I take this medicine? They need to know if you have any of these conditions: brain tumor Crohn's disease, inflammatory bowel disease, or ulcerative colitis drink more than 3 alcohol-containing drinks per day drug abuse or addiction head injury heart or circulation problems kidney disease or problems going to the bathroom liver disease lung disease, asthma, or breathing problems an unusual or allergic reaction to acetaminophen, hydrocodone, other opioid analgesics, other medicines, foods, dyes, or preservatives or trying to get breast-feeding What should I watch for while using this medicine? Tell your doctor or health adult care provider if your pain does not go away, if it gets worse, or if you have new or a different type of pain. You may develop tolerance to the medicine. Tolerance means that you will need a higher dose of the medicine for pain relief. Tolerance is normal and is expected if you take the medicine for a long time. Do not suddenly stop taking your medicine because you may develop a severe reaction. Your body becomes used to the medicine. This does NOT mean you are addicted. Addiction is a behavior related to getting and using a drug for a non-medical reason. If you have pain, you have a medical reason to take pain medicine. Your doctor will tell you how much medicine to take. If your doctor wants you to stop the medicine, the dose will be slowly lowered over time to avoid any side effects. You may get drowsy or dizzy when you first start taking the medicine or change doses. Do not drive, use machinery, or do anything that may be dangerous until you know how the medicine affects you. Stand or sit up slowly. There are different types of narcotic medicines (opiates) for pain. If you take more than one type at the same time, you may have more side effects. Give your health care provider a list of all medicines you use. Your doctor will tell you how much medicine to take. Do not take more medicine than directed. Call emergency for help if you have problems breathing. The medicine will cause constipation. Try to have a bowel movement at least every 2 to 3 days. If you do not have a bowel movement for 3 days, call your doctor or health adult care provider. Too much acetaminophen can be very dangerous. Do not take Tylenol (acetaminophen) or medicines that contain acetaminophen with this medicine. Many non-prescription medicines contain acetaminophen. Always read the labels carefully. Ondansetron Oral disintegrating tablet What is this medicine? ONDANSETRON (on RAJWINDER se sangeetha) is used to treat nausea and vomiting caused by chemotherapy. It is also used to prevent or treat nausea and vomiting after surgery. How should I use this medicine? These tablets are made to dissolve in the mouth. Do not try to push the tablet through the foil backing. With dry hands, peel away the foil backing and gently remove the tablet. Place the tablet in the mouth and allow it to dissolve, then swallow. While you may take these tablets with water, it is not necessary to do so. Talk to your materials clerk regarding the use of this medicine in children. Special care may be needed. What side effects may I notice from receiving this medicine? Side effects that you should report to your doctor or health adult care provider as soon as possible: allergic reactions like skin rash, itching or hives, swelling of the face, lips, or tongue breathing problems dizziness fast or irregular heartbeat feeling faint or lightheaded, falls fever and chills swelling of the hands and feet tightness in the chest Side effects that usually do not require medical attention (report to your doctor or health adult care provider if they continue or are bothersome): constipation or diarrhea headache What may interact with this medicine? Do not take this medicine with any of the following medications: -apomorphine -cisapride -dofetilide -dronedarone -pimozide -thioridazine -ziprasidone This medicine may also interact with the following medications: -carbamazepine -phenytoin -rifampicin -tramadol -other medicines that prolong the QT interval (cause an abnormal heart rhythm) What if I miss a dose? If you miss a dose, take it as soon as you can. If it is almost time for your next dose, take only that dose. Do not take double or extra doses. Where should I keep my medicine? Keep out of the reach of children. Store between 2 and 30 degrees C (36 and 86 degrees F). Throw away any unused medicine after the expiration date. What should I tell my health care provider before I take this medicine? They need to know if you have any of these conditions: heart disease history of irregular heartbeat liver disease low levels of magnesium or potassium in the blood an unusual or allergic reaction to ondansetron, granisetron, other medicines, foods, dyes, or preservatives or trying to get breast-feeding What should I watch for while using this medicine? Check with your doctor or health adult care provider as soon as you can if you have any sign of an allergic reaction. You have been given the following additional information: Biliary Colic With Gallstone (Confirmed) Diet, Kaufman (Adult) Hydrocodone Bitartrate, Acetaminophen Oral tablet Ondansetron Oral disintegrating tablet (Electronically signed by Aquilino Lopez Dr. 05/08/2016 8:14)
--- NOTE | 2016-05-08 08:32 | ED MAR SUMMARY ---
..... Medication Administration Record Merged With [facility] [address] [place] [address] Patient: MARK MORALES Visit ID: [id number] 36y, F Weight: 95.2 kg Height/Length: 62 in BMI: 38.4 ALLERGIES: No Known Drug Allergy Start 02:32 05/08/2016 Henri Mayfield RDonnN., Stop 03:35 05/08/2016 Henri Mayfield RDonnN. Medication Administered: IV NS (SALINE), Dose: IV Fluids over 60 minute(s), Rate: 1000 mL/hr, Dispensed: 1000 mL bag, Site: #1 left . Medication Ordered: IV NS : initial bolus none -, then none - for X1 (NOW). Given 02:39 05/08/2016 Henri Mayfield, R.N. Medication Administered: GI COCKTAIL RED [PO] (MAGNESIUM-ALUMINUM), Dose: 35 mL Oral Suspension PO. Medication Ordered: GI Cocktail RED PO 35 mL with Lidocaine Viscous Mouth/Throat 10 mL, Diphenhydramine Oral 10 mL, Maalox Plus Oral 15 mL (NOW).
--- NOTE | 2016-05-08 08:32 | ED MED RECONCILIATION SUMMARY ---
Patient: MARK MORALES Medication Reconciliation Report [facility] VisitID: [id number] [address] [place] [address] 36y, F Registration Date/Time: 05/08/2016 Weight: 95.2 kg Height/Length: 62 in. BMI: 38.4 ALLERGIES: No Known Drug Allergy The patient's Home Medications are listed below: CHANGE THE FOLLOWING MEDICATIONS TO: MetFORMIN HCl Oral : 500 mg 2x a day, Hold for [address] contrast. The source(s) of the original Home Medication information: patient The following Medications were given to the patient in the Emergency Department: IV NS IV Fluids bolus 0, then 1000 mL/hr, administered: 05/08/2016 2:32:00 AM GI COCKTAIL RED [PO] PO 35 mL, administered: 05/08/2016 2:39:00 AM The following Medications were prescribed to the patient: Hydrocodone/APAP 5mg / 325mg: take 1 orally every 6 hours as needed for pain. Dispense twenty (20). No refill. -- Aquilino Lopez Dr. Zofran (orally disintegrating tablets) 4 mg: take 1 orally every 6 hours as needed for nausea and vomiting. Dispense ten (10). No refill. Substitution is permissible. -- Aquilino Lopez Dr.
--- NOTE | 2016-05-08 08:32 | ED DISCHARGE INSTRUCTIONS ---
Patient: MARK MORALES General Instructions [facility] VisitID: [id number] [address] [place] [address] 36y, F Registration Date/Time: 05/08/2016 Biliary colic with multiple gallstones. INSTRUCTIONS Drink plenty of fluids. Avoid fatty and fried/greasy foods. Your Current Medications: CHANGE THE FOLLOWING MEDICATIONS TO: MetFORMIN HCl Oral : 500 mg 2x a day, Hold for [address] contrast. Prescription Medications: Hydrocodone/APAP 5mg / 325mg: take 1 orally every 6 hours as needed for pain. Dispense twenty (20). No refill. Zofran (orally disintegrating tablets) 4 mg: take 1 orally every 6 hours as needed for nausea and vomiting. Dispense ten (10). No refill. Substitution is permissible. Follow-up with: Slade Knight MD, General Surgeon, , [facility], [address] [place] [address] Follow up tomorrow. Call for an appointment. ADDITIONAL INFORMATION GallstonesWith Biliary Colic [Confirmed Dx] The abdominal pain that you have today is due to spasm of the gallbladder. The gallbladder is a small sac under the liver which stores and releases bile. Bile is a fluid that aids in the digestion of fat. A gallstone may form inside the gallbladder and block the flow of bile fluid. This causes mild to severe crampy pain in the mid or right upper abdomen with nausea and vomiting. Home Care: Rest in bed and follow a clear liquid diet until feeling better. If pain or nausea medicine was given to help with your symptoms, take these as directed. Fat in your diet makes the gallbladder contract and may cause increased pain. Therefore, avoid fat in your diet over the next two days and follow a low-fat diet after that. If you are overweight, a low-fat diet will also help you lose weight. Follow Up with your doctor. There is a 50% chance that you will have another episode of pain from your gallstones during the next 2 years. Removal of the gallbladder is the treatment of choice to prevent this. Schedule an appointment with your own doctor during the next week to discuss the treatment options. Get Prompt Medical Attention if any of the following occur: Pain gets worse or moves to the right lower abdomen Repeated vomiting Swelling of the abdomen Pain lasts over 6 hours Fever of 100.4F (38C) or higher, or as directed by your healthcare provider Weakness, dizziness or fainting Dark urine or light colored stools Yellow color of the skin or eyes Chest, arm, back, neck or jaw pain Weld Diet A bland diet is used for patients with an upset stomach. It consists of foods that are mild and easy to digest. It is better to eat small frequent meals rather than three large meals a day. BEVERAGES OK: Fruit juices, non-caffeinated teas and coffee, non-carbonated farrar AVOID: Carbonated beverage, caffeinated tea and coffee, all alcoholic beverages BREAD OK: Refined white, wheat or rye bread, dinesh or soda crackers, Nola toast, plain rolls, bagels AVOID: Whole-grain bread CEREAL OK: Refined cereals: cooked or ready to eat AVOID: Whole grain cereals and granola, or those containing bran, seeds or nuts DESSERTS OK: Peanut butter and all others except those to "avoid" AVOID: Chocolate, cocoa, coconut, popcorn, nuts, seeds, jam, marmalade FRUITS OK: Canned, cooked, frozen or fresh fruits without seeds or tough skin AVOID: Olives, skin and seeds of fruit MEATS OK: All fresh or preserved meat, fish and fowl AVOID: Any that are prepared with those spices to "avoid" CHEESE & EGGS OK: Eggs, cottage cheese, cream cheese, other cheeses AVOID: All cheeses made with those spices to "avoid" POTATOES & PASTA OK: Potato, rice, macaroni, noodles, spaghetti AVOID: None SOUPS OK: All soups without heavy seasoning AVOID: Soups made with those spices to "avoid" VEGETABLES OK: Canned, cooked, fresh or frozen mildly flavored vegetables without seeds, skins or coarse fiber AVOID: Vegetables prepared with those spices to "avoid"; skin and seeds of vegetables and those with coarse fiber SPICES OK: Salt, lemon and [place] juice, vinegar, all extracts, ming, cinnamon, thyme, mace, allspice, paprika AVOID: [place] powder, cloves, pepper, seed spices, garlic, gravy pickles, highly seasoned salad dressings Hydrocodone Bitartrate, Acetaminophen Oral tablet What is this medicine? ACETAMINOPHEN; HYDROCODONE (a set a MARIANGEL regina fen; chace droe KOE done) is a pain reliever. It is used to treat mild to moderate pain. How should I use this medicine? Take this medicine by mouth. Swallow it with a full glass of water. Follow the directions on the prescription label. If the medicine upsets your stomach, take the medicine with food or milk. Do not take more than you are told to take. Talk to your desulfurizer operator regarding the use of this medicine in children. This medicine is not approved for use in children. What side effects may I notice from receiving this medicine? Side effects that you should report to your doctor or health ocular care technician as soon as possible: allergic reactions like skin rash, itching or hives, swelling of the face, lips, or tongue breathing problems confusion feeling faint or lightheaded, falls stomach pain yellowing of the eyes or skin Side effects that usually do not require medical attention (report to your doctor or health ocular care technician if they continue or are bothersome): nausea, vomiting stomach upset What may interact with this medicine? alcohol antihistamines isoniazid medicines for depression, anxiety, or psychotic disturbances medicines for sleep muscle relaxants naltrexone narcotic medicines (opiates) for pain phenobarbital ritonavir tramadol What if I miss a dose? If you miss a dose, take it as soon as you can. If it is almost time for your next dose, take only that dose. Do not take double or extra doses. Where should I keep my medicine? Keep out of the reach of children. This medicine can be abused. Keep your medicine in a safe place to protect it from theft. Do not share this medicine with anyone. Selling or giving away this medicine is dangerous and against the law. Store at room temperature between 15 and 30 degrees C (59 and 86 degrees F). Protect from light. Keep container tightly closed. Throw away any unused medicine after the expiration date. Discard unused medicine and used packaging carefully. Pets and children can be harmed if they find used or lost packages. What should I tell my health care provider before I take this medicine? They need to know if you have any of these conditions: brain tumor Crohn's disease, inflammatory bowel disease, or ulcerative colitis drink more than 3 alcohol-containing drinks per day drug abuse or addiction head injury heart or circulation problems kidney disease or problems going to the bathroom liver disease lung disease, asthma, or breathing problems an unusual or allergic reaction to acetaminophen, hydrocodone, other opioid analgesics, other medicines, foods, dyes, or preservatives or trying to get breast-feeding What should I watch for while using this medicine? Tell your doctor or health ocular care technician if your pain does not go away, if it gets worse, or if you have new or a different type of pain. You may develop tolerance to the medicine. Tolerance means that you will need a higher dose of the medicine for pain relief. Tolerance is normal and is expected if you take the medicine for a long time. Do not suddenly stop taking your medicine because you may develop a severe reaction. Your body becomes used to the medicine. This does NOT mean you are addicted. Addiction is a behavior related to getting and using a drug for a non-medical reason. If you have pain, you have a medical reason to take pain medicine. Your doctor will tell you how much medicine to take. If your doctor wants you to stop the medicine, the dose will be slowly lowered over time to avoid any side effects. You may get drowsy or dizzy when you first start taking the medicine or change doses. Do not drive, use machinery, or do anything that may be dangerous until you know how the medicine affects you. Stand or sit up slowly. There are different types of narcotic medicines (opiates) for pain. If you take more than one type at the same time, you may have more side effects. Give your health care provider a list of all medicines you use. Your doctor will tell you how much medicine to take. Do not take more medicine than directed. Call emergency for help if you have problems breathing. The medicine will cause constipation. Try to have a bowel movement at least every 2 to 3 days. If you do not have a bowel movement for 3 days, call your doctor or health ocular care technician. Too much acetaminophen can be very dangerous. Do not take Tylenol (acetaminophen) or medicines that contain acetaminophen with this medicine. Many non-prescription medicines contain acetaminophen. Always read the labels carefully. Ondansetron Oral disintegrating tablet What is this medicine? ONDANSETRON (on RAJWINDER se sangeetha) is used to treat nausea and vomiting caused by chemotherapy. It is also used to prevent or treat nausea and vomiting after surgery. How should I use this medicine? These tablets are made to dissolve in the mouth. Do not try to push the tablet through the foil backing. With dry hands, peel away the foil backing and gently remove the tablet. Place the tablet in the mouth and allow it to dissolve, then swallow. While you may take these tablets with water, it is not necessary to do so. Talk to your desulfurizer operator regarding the use of this medicine in children. Special care may be needed. What side effects may I notice from receiving this medicine? Side effects that you should report to your doctor or health ocular care technician as soon as possible: allergic reactions like skin rash, itching or hives, swelling of the face, lips, or tongue breathing problems dizziness fast or irregular heartbeat feeling faint or lightheaded, falls fever and chills swelling of the hands and feet tightness in the chest Side effects that usually do not require medical attention (report to your doctor or health ocular care technician if they continue or are bothersome): constipation or diarrhea headache What may interact with this medicine? Do not take this medicine with any of the following medications: -apomorphine -cisapride -dofetilide -dronedarone -pimozide -thioridazine -ziprasidone This medicine may also interact with the following medications: -carbamazepine -phenytoin -rifampicin -tramadol -other medicines that prolong the QT interval (cause an abnormal heart rhythm) What if I miss a dose? If you miss a dose, take it as soon as you can. If it is almost time for your next dose, take only that dose. Do not take double or extra doses. Where should I keep my medicine? Keep out of the reach of children. Store between 2 and 30 degrees C (36 and 86 degrees F). Throw away any unused medicine after the expiration date. What should I tell my health care provider before I take this medicine? They need to know if you have any of these conditions: heart disease history of irregular heartbeat liver disease low levels of magnesium or potassium in the blood an unusual or allergic reaction to ondansetron, granisetron, other medicines, foods, dyes, or preservatives or trying to get breast-feeding What should I watch for while using this medicine? Check with your doctor or health ocular care technician as soon as you can if you have any sign of an allergic reaction. You have been given the following additional information: Biliary Colic With Gallstone (Confirmed) Diet, Weld (Adult) Hydrocodone Bitartrate, Acetaminophen Oral tablet Ondansetron Oral disintegrating tablet (Electronically signed by Aquilino Lopez Dr. 05/08/2016 8:14)
--- NOTE | 2016-05-08 08:32 | ED MAR SUMMARY ---
..... Medication Administration Record [facility] [address] [place] [address] Patient: MARK MORALES Visit ID: [id number] 36y, F Weight: 95.2 kg Height/Length: 62 in BMI: 38.4 ALLERGIES: No Known Drug Allergy Start 02:32 05/08/2016 Henri Mayfield RDonnN., Stop 03:35 05/08/2016 Henri Mayfield RDonnN. Medication Administered: IV NS (SALINE), Dose: IV Fluids over 60 minute(s), Rate: 1000 mL/hr, Dispensed: 1000 mL bag, Site: #1 left . Medication Ordered: IV NS : initial bolus none -, then none - for X1 (NOW). Given 02:39 05/08/2016 Henri Mayfield, R.N. Medication Administered: GI COCKTAIL RED [PO] (MAGNESIUM-ALUMINUM), Dose: 35 mL Oral Suspension PO. Medication Ordered: GI Cocktail RED PO 35 mL with Lidocaine Viscous Mouth/Throat 10 mL, Diphenhydramine Oral 10 mL, Maalox Plus Oral 15 mL (NOW).
--- NOTE | 2016-05-08 08:32 | ED MED RECONCILIATION SUMMARY ---
Patient: MARK MORALES Medication Reconciliation Report [facility] VisitID: [id number] [address] [place] [address] 36y, F Registration Date/Time: 05/08/2016 Weight: 95.2 kg Height/Length: 62 in. BMI: 38.4 ALLERGIES: No Known Drug Allergy The patient's Home Medications are listed below: CHANGE THE FOLLOWING MEDICATIONS TO: MetFORMIN HCl Oral : 500 mg 2x a day, Hold for [address] contrast. The source(s) of the original Home Medication information: patient The following Medications were given to the patient in the Emergency Department: IV NS IV Fluids bolus 0, then 1000 mL/hr, administered: 05/08/2016 2:32:00 AM GI COCKTAIL RED [PO] PO 35 mL, administered: 05/08/2016 2:39:00 AM The following Medications were prescribed to the patient: Hydrocodone/APAP 5mg / 325mg: take 1 orally every 6 hours as needed for pain. Dispense twenty (20). No refill. -- Aquilino Lopez Dr. Zofran (orally disintegrating tablets) 4 mg: take 1 orally every 6 hours as needed for nausea and vomiting. Dispense ten (10). No refill. Substitution is permissible. -- Aquilino Lopez Dr.
== END 2016-05-08 08:29 | disposition home or self-care (01) ==
LOC: ED SRH 01:33
DX: K80.70 Calculus of gallbladder and bile duct without cholecystitis without obstruction (principal); E11.9 Type 2 diabetes mellitus without complications; Z79.84 Long term (current) use of oral hypoglycemic drugs; Z87.891 Personal history of nicotine dependence
CPT/HCPCS: 90004; 90100; 92235; 92530; 93070; 95059